=== PATIENT | male | born 1950 ===

== ENCOUNTER → 2018-10-11 18:54 | Outpatient (REF) | payer MEDICARE, OTHER, SELFPAY ==
[2018-10-11 19:14] LABS: Hemoglobin A1C% w Est Avg Glu 5.8 % (4.0-6.0)
[2018-10-11 19:20] LABS: BUN Creatinine Ratio 11.3 (6-22); Blood Urea Nitrogen 17 mg/dL (9-20); Calcium 9.7 mg/dL (8.4-10.2); Carbon Dioxide 25 mmol/L (22-32); Chloride 106 mmol/L (98-107); Estimated Glomerular Filt Rate 46.3 mL/min (>60); Glucose 123 mg/dL (80-110); Sodium 140 mmol/L (137-145)
[2018-10-11 19:21] LABS: HEMOLYSIS 53 (0-50); Potassium 4.9 mmol/L (3.4-5.1)
[2018-10-11 19:51] LABS: Thyroid Stimulating Hormone 0.84 uIU/mL (0.47-4.68)
== END ==
LOC: LAB 18:54
PROVIDERS: Visit Provider Family Medicine
DX: E03.1 Congenital hypothyroidism without goiter (principal); E03.9 Hypothyroidism, unspecified; E11.9 Type 2 diabetes mellitus without complications
CPT/HCPCS: 36415; 80048; 83036; 84443

== ENCOUNTER → 2018-11-13 19:02 | Outpatient (REF) | payer MEDICARE, OTHER, SELFPAY ==
[2018-11-13 20:21] LABS: Uric Acid 7.5 mg/dL (3.5-8.5)
== END ==
LOC: LAB 19:02
PROVIDERS: Visit Provider Family Medicine
DX: M10.9 Gout, unspecified (principal)
CPT/HCPCS: 36415; 84550